=== PATIENT | male | born 1945 | race Caucasian/White ===

== ENCOUNTER → 2020-01-02 | Outpatient (CLI) | payer OTHER, MEDICARE ==
[~2020-01-02] MED LIST: ALBU90OI INH; ALDACTONE100 MG PO; ALPR.5 PO; AMLO10 PO; AMLO5 PO; ANDROGEL75 GM TD; ATOR40TA PO; BACL20 PO; CALCIUM 600+D1 EACH PO; CHLO25B PO; CYCL10 PO; DICL75ER PO; DONEPEZIL HCL10 MG PO; DOXA2 PO; DOXA4 PO; Doxycycline Mon50 M1 PO; ETOD500 PO; LECITHIN400 MG PO; LISHYD2025 PO; LISI20 PO; LORA.5 PO; Lecithin-191200 MG; MAGNESIUM250 MG PO; MAGOXI400 PO; METO25ER PO; MULVITMIND PO; MULVITMINE PO; OMEP20ER PO; POTASSIUM GLUC500 MG PO; PREPARATION H1 EACH TOP; SILD50TA PO; SIMV40 PO; TAMS.4ER PO; TESTOSTERONE INJ; Ultram50 MG PO; VITAMIN D31000 UNIT PO; Vitamin B Comple1 EA PO
[2020-01-02 16:27] LABS: Blood, Urine Neg (Neg); Glucose Qualitative, Urine Neg (Neg); Ketones, Urine Neg (Neg); Leukocyte Esterase, Urine Neg (Neg); Nitrite, Urine Pos (Neg); Protein, Urine Neg (Neg); Specific Gravity, Urine 1.015 (1.003-1.022); Urobilinogen, Urine 2+ (Normal)
[2020-01-02 16:36] LABS: Appearance, Urine Clear (Clear); Bacteria Mod /hpf; Bilirubin, Urine 2+ (Neg); Color, Urine Orange (P-Yellow); Red Blood Cells, Urine 0-2 /hpf (0-2); Squamous Epithelial Cells Few /hpf (Few); White Blood Cells, Urine 0-2 /hpf (0-5)
== END | disposition home or self-care (01) ==
LOC: LAB SHORT 13:00 → LAB 13:00
PROVIDERS: Urology
DX: N39.0 Urinary tract infection, site not specified (principal)
CPT/HCPCS: 81001; 87086

== ENCOUNTER 2020-01-03 13:00 | Emergency (ER) | payer OTHER, MEDICARE ==
[~2020-01-03] VITALS: Ht 180.3 cm; Wt 99.8 kg
[~2020-01-03 13:00] MED LIST changes: -ALDACTONE100 MG PO; -ANDROGEL75 GM TD; -BACL20 PO; -CHLO25B PO; +DONE10 PO; -DONEPEZIL HCL10 MG PO; -ETOD500 PO; -PREPARATION H1 EACH TOP; -TAMS.4ER PO; +Testostero100 MG/1 M INJ; -Ultram50 MG PO
[2020-01-03] MEDS ORDERED: BACL20 PO (13:22)
[2020-01-03] MEDS ORDERED: CHLO25B PO (13:23)
[2020-01-03] MEDS ORDERED: ETOD500 PO (13:24)
[2020-01-03] MEDS ORDERED: ALDACTONE100 MG PO (13:26)
[2020-01-03] MEDS ORDERED: TAMS.4ER (13:26)
[2020-01-03] MEDS ORDERED: Ultram50 MG PO (13:48)
[2020-01-03] MEDS ORDERED: PREPARATION H1 EACH TOP (13:48)
== END 2020-01-03 15:12 | disposition home or self-care (01) ==
LOC: ER 13:00
DX: K64.4 Residual hemorrhoidal skin tags (principal); I10 Essential (primary) hypertension; K21.9 Gastro-esophageal reflux disease without esophagitis; Z88.2 Allergy status to sulfonamides; Z91.048 Other nonmedicinal substance allergy status; Z88.8 Allergy status to other drugs, medicaments and biological substances; Z88.5 Allergy status to narcotic agent; Z79.899 Other long term (current) drug therapy; Z79.51 Long term (current) use of inhaled steroids
CPT/HCPCS: 99283

== ENCOUNTER 2020-01-23 06:20 | Day surgery (SDC) | payer OTHER, MEDICARE ==
[~2020-01-23] VITALS: Ht 177.8 cm; Wt 100.0 kg
[~2020-01-23 06:20] MED LIST changes: +ALDACTONE100 MG PO; +ANDROGEL75 GM TD; +BACL20 PO; +CHLO25B PO; -DONE10 PO; +DONEPEZIL HCL10 MG PO; +ETOD500 PO; +PREPARATION H1 EACH TOP; +TAMS.4ER PO; -Testostero100 MG/1 M INJ; +Ultram50 MG PO
--- NOTE | 2020-01-23 07:43 | NUR ---
PT INTO SDS VIA W/C ABLE TO TRANSFER TO BED WITH SLIDER BOARD. History, Chart, Medications and Allergies reviewed before start of procedure.Patient confirms NPO status and agrees with scheduled surgery. Lungs clear T/O to Auscultation.
--- NOTE | 2020-01-23 09:51 | NUR ---
REPORT GIVEN TO ROXANA
--- NOTE | 2020-01-23 11:15 | NUR ---
discharged Discharge instructions reviewed with patient. Patient verbalizes understanding. Copy given to patient to take home. Dressing to procedure site clean, dry, intact with no visible drainage, swelling, erythema or bruising noted. Patient States Post-Procedure ride home has been arranged. Discharged via wheelchair to private car for ride home. pt transfered with daisha lift to personal wc pt tolerated well rx given to to fill f[facility] secured c/d/i
--- NOTE | 2020-01-26 07:39 | NUR ---
01/26/20 0739 Nikki Hebert VERIFICATIONS: EDIT CHART.
== END 2020-01-23 22:48 | disposition home or self-care (01) ==
LOC: ORSCMMR 06:20 → ORD 08:00 → ORSCMMR 22:48
PROVIDERS: Surgery
PROC: 06BY0ZC Excision of Hemorrhoidal Plexus, Open Approach (ICD-10-PCS; principal; 2020-01-23 08:00)
DX: K64.2 Third degree hemorrhoids (principal); I10 Essential (primary) hypertension; E78.5 Hyperlipidemia, unspecified; J45.909 Unspecified asthma, uncomplicated; Z79.899 Other long term (current) drug therapy
CPT/HCPCS: 88304; J1100; J1956; J2405; J2704; J3010; J7120

== ENCOUNTER 2020-08-13 10:32 | Day surgery (SDC) | payer OTHER ==
--- NOTE | 2020-08-13 12:55 | NUR ---
08/13/20 1255 MELANIE BORJAS incomplete procedure - upon taking off attends solid, brown stool was noted. DR. KAUR ATTEMPTED TO PASS SCOPE BUT IT WAS EVIDENT THAT COLON WAS NOT CLEANED AND PROCEDURE WAS INCOMPLETE. PT ADVISED HE WILL NEED TO COMPLETE ADDITIONAL COLON PREP AND CONTACT DR. KAUR'S OFFICE TO RESCHEDULE PROCEDURE.
== END 2020-08-13 12:45 | disposition home or self-care (01) ==
LOC: ORSCSDS 10:32
PROVIDERS: Surgery
PROC: 0DJD8ZZ Inspection of Lower Intestinal Tract, Via Natural or Artificial Opening Endoscopic (ICD-10-PCS; principal; 2020-08-13 12:00)
DX: Z12.11 Encounter for screening for malignant neoplasm of colon (principal); K64.8 Other hemorrhoids; Z86.010 Personal history of colon polyps; I10 Essential (primary) hypertension; E78.5 Hyperlipidemia, unspecified; D69.6 Thrombocytopenia, unspecified; J45.909 Unspecified asthma, uncomplicated; Z79.899 Other long term (current) drug therapy; Z87.891 Personal history of nicotine dependence
CPT/HCPCS: J2704; J7120

== ENCOUNTER 2020-08-14 10:27 | Day surgery (SDC) | payer OTHER ==
[~2020-08-14] VITALS: Ht 180.3 cm; Wt 100.0 kg
== END 2020-08-14 13:25 | disposition home or self-care (01) ==
LOC: ORSCSDS 10:27
PROVIDERS: Surgery
PROC: 0DJD8ZZ Inspection of Lower Intestinal Tract, Via Natural or Artificial Opening Endoscopic (ICD-10-PCS; principal; 2020-08-14 12:00)
DX: Z12.11 Encounter for screening for malignant neoplasm of colon (principal); Z86.010 Personal history of colon polyps; K64.4 Residual hemorrhoidal skin tags; I10 Essential (primary) hypertension; E78.5 Hyperlipidemia, unspecified; J45.909 Unspecified asthma, uncomplicated; Z79.899 Other long term (current) drug therapy
CPT/HCPCS: J2704; J7120

== ENCOUNTER 2020-08-25 10:45 | Emergency (ER) | payer OTHER, MEDICARE ==
[~2020-08-25] VITALS: Ht 177.8 cm; Wt 99.8 kg
[2020-08-25] MEDS ORDERED: PERIDEX15 ML (10:57)
[2020-08-25] MEDS ORDERED: DONE10 PO (10:58)
[2020-08-25] MEDS ORDERED: ETOD500 PO (10:59)
[2020-08-25] MEDS ORDERED: Fluocinonide15 GM (10:59)
[2020-08-25] MEDS ORDERED: FLUT.05NI (11:00)
[2020-08-25] MEDS ORDERED: Pyridium100 MG PO (11:01)
== END 2020-08-25 13:07 | disposition home or self-care (01) ==
LOC: ER 10:45
DX: L29.9 Pruritus, unspecified (principal); I10 Essential (primary) hypertension; K21.9 Gastro-esophageal reflux disease without esophagitis; E78.00 Pure hypercholesterolemia, unspecified; Z88.2 Allergy status to sulfonamides; Z88.5 Allergy status to narcotic agent; Z88.8 Allergy status to other drugs, medicaments and biological substances; Z88.1 Allergy status to other antibiotic agents; Z79.899 Other long term (current) drug therapy
CPT/HCPCS: 99282

== ENCOUNTER 2021-01-11 09:28 | Emergency (ER) | payer OTHER, MEDICARE ==
[~2021-01-11] VITALS: Ht 177.8 cm; Wt 95.2 kg
[~2021-01-11 09:28] MED LIST changes: +DONE10 PO; +FLUT.05NI; +Fluocinonide15 GM; +PERIDEX15 ML PO; +Pyridium100 MG PO
[2021-01-11] MEDS ORDERED: MELO7.5 PO (09:58)
[2021-01-11] MEDS ORDERED: Hytrin2 MG PO (09:59)
[2021-01-11] MEDS ORDERED: ATOR40TA PO ×2 (10:00)
[2021-01-11] MEDS ORDERED: FAMO40 PO ×2 (10:03)
[2021-01-11] MEDS ORDERED: Roxicodone5 MG PO (11:53)
[2021-01-11] MEDS ORDERED: CEFD300 PO (11:53)
== END 2021-01-11 13:00 | disposition home or self-care (01) ==
LOC: ER 09:28
DX: J18.9 Pneumonia, unspecified organism (principal); M54.6 Pain in thoracic spine; I10 Essential (primary) hypertension; E78.00 Pure hypercholesterolemia, unspecified; K21.9 Gastro-esophageal reflux disease without esophagitis; Z88.2 Allergy status to sulfonamides; Z88.8 Allergy status to other drugs, medicaments and biological substances; Z79.899 Other long term (current) drug therapy
CPT/HCPCS: 71046; 99283-25; A9270

== ENCOUNTER 2021-01-12 08:00 | Inpatient (IN) | payer OTHER, MEDICARE ==
[~2021-01-12] VITALS: Ht 182.9 cm; Wt 109.2 kg
[~2021-01-12 08:00] MED LIST changes: +CEFD300 PO; +FAMO40 PO; +Hytrin2 MG PO; +MELO7.5 PO; +Roxicodone5 MG PO
[2021-01-12 09:01] LABS: BASOPHILS ABSOLUTE AUTO 0.05 K/mm3 (0.00-0.23); BASOPHILS PERCENT AUTO 0 % (0-2); EOSINOPHILS ABSOLUTE AUTO 0.29 K/mm3 (0.00-0.68); EOSINOPHILS PERCENT AUTO 2 % (0-6); Hematocrit 37.7 % (37.0-53.0); Hemoglobin 12.2 g/dL (13.5-17.5); IMMATURE GRAN ABSOLUTE AUTO 0.12 K/mm3 (0.00-0.10); IMMATURE GRAN PERCENT AUTO 1 % (0-1); LYMPHOCYTES ABSOLUTE AUTO 1.14 K/mm3 (0.84-5.20); LYMPHOCYTES PERCENT AUTO 9 % (21-46); MONOCYTES ABSOLUTE AUTO 1.17 K/mm3 (0.16-1.47); MONOCYTES PERCENT AUTO 9 % (4-13); Mean Corpuscular HGB Conc 32.4 g/dL (31.5-36.5); Mean Corpuscular Volume 80 fL (80-100); Mean Platelet Volume 11.2 fL (9.1-12.4); NEUTROPHILS ABSOLUTE AUTO 9.63 K/mm3 (1.96-9.15); NEUTROPHILS PERCENT AUTO 78 % (41-73); Platelet Count 258 K/mm3 (150-400); RDW Coefficient Variation 14.8 % (11.7-14.2); RDW Standard Deviation 43.2 fL (35.1-46.3); Red Blood Cell Count 4.69 M/mm3 (4.30-5.90)
[2021-01-12 09:23] LABS: Albumin, Blood 3.3 g/dL (3.4-5.0); Albumin/Globulin Ratio 0.7 (0.8-1.8); Bilirubin, Total 0.4 mg/dL (0.1-1.0); Bun/Creatinine Ratio 26.5 (12.0-20.0); Calcium, Blood 9.4 mg/dL (8.5-10.1); Creatinine, Blood 1.36 mg/dL (0.60-1.20); Globulin, Blood 4.6 g/dL (2.2-4.0); Potassium, Blood 4.2 mmol/L (3.5-5.5); Total Protein, Blood 7.9 g/dL (6.4-8.2)
[2021-01-12 10:50] LABS: Source, Urine Clean Catch
[2021-01-12 10:57] LABS: Bilirubin, Urine Neg (Neg); Blood, Urine 5+ (Neg); Glucose Qualitative, Urine Neg (Neg); Ketones, Urine 1+ (Neg); Leukocyte Esterase, Urine 3+ (Neg); Nitrite, Urine Neg (Neg); Protein, Urine 2+ (Neg); Specific Gravity, Urine 1.025 (1.003-1.022); Urobilinogen, Urine NORM (Normal)
[2021-01-12 11:03] LABS: Appearance, Urine Cloudy (Clear); Color, Urine Yellow (P-Yellow)
[2021-01-12 11:05] LABS: Bacteria Few /hpf; Red Blood Cells, Urine TNTC /hpf (0-2); Squamous Epithelial Cells Rare /hpf (Few)
--- NOTE | 2021-01-12 17:38 | NUR ---
PATIENT ARRIVED TO ROOM 350 AT 1620 BY STRETCHER AND THREE STAFF MEMBERS ASSISTED TO TRANSFER PATIENT OVER TO HOSPITAL BED. RECIEVED BEDSIDE REPORT FROM JOHN RATLIFF. ADMISSION ASSESSMENT AND H&P COMPLETED TO THE BEST OF MY ABILITY REFERING TO THE PATIENT'S MEDICAL RECORD. PATIENT WAS ABLE TO ANSWER ORIENTATION QUESTIONS APPROPRIATELY, BUT TOOK SOME TIME AND SOME PROMPTING. IV FLUIDS STARTED AND LOVENOX ADMINISTERED. TELE BOX JUST NOW RECIEVED AND IS BEING PLACED ON PATIENT. PATIENT HEARD HAVING AUDITORY AND VISUAL HALLUCINATIONS OCCASIONALLY. SO FAR HE HAS BEEN PLEASANT AND COOPERATIVE WITH STAFF. PATIENT RESTING IN BED AT THIS TIME. CALL LIGHT IN REACH.
--- NOTE | 2021-01-13 06:22 | NUR ---
SUMMARY NO ACUTE ISSUES NOTED. PT HOME DOSE OF OXYCODONE ORDERED BY DR NICOLAS. PT BACK PAIN HAS BEEN MANAGED WELL. PT ABD REMAINS DISTENDED. PT HAD NO NOTED BM. PT GIVEN SUPOSITORY W/ NO BM. PT CURRENTLY AWAKE AND IN NO DISTRESS. PT SPO2 >90% ON RA. CALL LIGHT IN REACH AND BED ALARM ON.
[2021-01-13 06:23] LABS: BASOPHILS ABSOLUTE AUTO 0.03 K/mm3 (0.00-0.23); BASOPHILS PERCENT AUTO 0 % (0-2); EOSINOPHILS ABSOLUTE AUTO 0.33 K/mm3 (0.00-0.68); EOSINOPHILS PERCENT AUTO 4 % (0-6); Hematocrit 35.1 % (37.0-53.0); Hemoglobin 11.3 g/dL (13.5-17.5); IMMATURE GRAN ABSOLUTE AUTO 0.07 K/mm3 (0.00-0.10); IMMATURE GRAN PERCENT AUTO 1 % (0-1); LYMPHOCYTES ABSOLUTE AUTO 1.27 K/mm3 (0.84-5.20); LYMPHOCYTES PERCENT AUTO 13 % (21-46); MONOCYTES ABSOLUTE AUTO 0.93 K/mm3 (0.16-1.47); MONOCYTES PERCENT AUTO 10 % (4-13); Mean Corpuscular HGB 26.3 pg (26.0-34.0); Mean Corpuscular HGB Conc 32.2 g/dL (31.5-36.5); Mean Corpuscular Volume 82 fL (80-100); Mean Platelet Volume 10.3 fL (9.1-12.4); NEUTROPHILS PERCENT AUTO 72 % (41-73); Platelet Count 235 K/mm3 (150-400); RDW Standard Deviation 45.2 fL (35.1-46.3); White Blood Cell Count 9.53 K/mm3 (4.00-11.30)
[2021-01-13 06:39] LABS: Bun/Creatinine Ratio 25.8 (12.0-20.0); Calcium, Blood 9.1 mg/dL (8.5-10.1); Creatinine, Blood 1.28 mg/dL (0.60-1.20); Potassium, Blood 4.4 mmol/L (3.5-5.5)
--- NOTE | 2021-01-13 07:13 | NUR ---
summary NO ACUTE ISSUES NOTED. PT MORE ALERT THIS AM. PT PAINFUL AND UNCOMFORTABLE FOR MOST OF FIRST PART OF SHIFT. PT COMPLAINED OF BACK/ NECK PAIN. TYLENOL DID NOT PROVIDE RELIEF. PROVIDER ROEBRT CALLED AND HOME DOSE OF OXYCODONE WAS ORDERED. PT TX W/ RELIEF NOTED AND PT ABLE TO SLEEP. PT ABD IS DISTENDED AND RIGID. PT PASSING GAS BUT NO BM. PT GIVEN SUPPOSITORY W/ NO BM. PT EXTREMELY STIFF AND UNABLE TO SIT UP WELL. PT SPO2 HAS BEEN >90% DURING SHIFT. CALL LIGHT IN REACH AND PT IN NO DISTRESS.
--- NOTE | 2021-01-13 17:46 | NUR ---
SHIFT SUMMARY BHARATI HAD BOWEL PROTOCOL AND HAD TO VERY EXTRA LARGE LOOSE INCONTINENT BOWEL MOVEMENTS. ABD MUCH LESS DISTENDED AFTER THESE. DENIES PAIN. BEDBOUND, ONLY HAS GROSS MOVEMENT IN BLE. WORKED WITH PT, NOW HAS A TRAPEZE ABOVE HIS BED. ORIENTED SOMEWHAT, FORGETFUL. DESATS TO 60S WITHOUT OXYGEN, DR OSORIO MADE AWARE, SHE ORDERED SLEEP STUDY FOR TONIGHT. PT ON 2L OXYGEN CONTINUALLY FOR HIS FREQNET SMALL NAPS, BUT HE TENDS TO TAKE THIS OFF. HEARING AID BATTERIES DROPPED OFF BY HIS , NEW ONE PLACED IN R [place], ZIP LOCK BAG OF [place] BATTERIES AT . TOOK PILLS WIATH APPLESAUCE. CALL LIGHT IN REACH, FREQUENT CHECKS, TM
--- NOTE | 2021-01-14 05:10 | NUR ---
JUVENILE OFFICER SUMMARY NO ACUTE CHANGES THIS SHIFT. PT AAOX1, ABLE TO FOLLOW SOME DIRECTION BUT IS VERY DIOMEDE AND OFTEN RESPONDS WITH NONSENSICAL WORDS. SMALL BM AT START OF SHIFT. LACTULOSE HELD DUE TO PT HAVING 2-3 EXTRA LARGE LIQUID BM'S PER DAY SHIFT RN REPORT. INCONTINENT OF URINE, ATTENDS CHANGED SEVERAL TIMES THROUGH THE NIGHT. VSS, WILL CONTINUE TO MONITOR.
[2021-01-14 06:07] LABS: Anion Gap 7 mmol/L (6-16); Blood Urea Nitrogen 26 mg/dL (8-24); Bun/Creatinine Ratio 22.8 (12.0-20.0); CO2, Blood 24 mmol/L (21-32); Calcium, Blood 9.3 mg/dL (8.5-10.1); Chloride, Blood 103 mmol/L (98-108); Creatinine, Blood 1.14 mg/dL (0.60-1.20); Glomerular Filtration Rate >60 (60-); Glucose, Blood 107 mg/dL (70-99); Potassium, Blood 4.2 mmol/L (3.5-5.5); Sodium, Blood 134 mmol/L (136-145)
[2021-01-14] MEDS ORDERED: ACET500 PO ×2 (12:01)
[2021-01-14] MEDS ORDERED: CLOB.05TO TOP ×2 (12:03)
[2021-01-14] MEDS ORDERED: Cyproheptadine H4 MG PO ×2 (12:05)
[2021-01-14] MEDS ORDERED: DICLOFENAC SOD100 G1 TOP ×2 (12:08)
[2021-01-14] MEDS ORDERED: DOXY100 PO ×2 (12:08)
[2021-01-14] MEDS ORDERED: Atarax10 MG PO ×2 (12:11)
[2021-01-14] MEDS ORDERED: LIDO700A20 TOP ×2 (12:12)
[2021-01-14] MEDS ORDERED: TERA5 PO ×2 (12:13)
[2021-01-14 13:52] LABS: SARS-Cov-2 (COVID-19) PCR, MMC NEGATIVE (NEGATIVE)
[2021-01-14] MEDS ORDERED: ACET325 PO ×2 (14:30)
[2021-01-14] MEDS ORDERED: AZIT250 PO ×2 (14:30)
[2021-01-14] MEDS ORDERED: BISA10S PR ×2 (14:31)
[2021-01-14] MEDS ORDERED: CEFU500T30 PO ×2 (14:32)
[2021-01-14] MEDS ORDERED: DOXA2 PO ×2 (14:33)
[2021-01-14] MEDS ORDERED: DONEPEZIL HCL10 MG PO ×2 (14:33)
[2021-01-14] MEDS ORDERED: OXYC5 PO ×2 (14:35)
[2021-01-14] MEDS ORDERED: MIRALAX17 GM PO ×2 (14:35)
--- NOTE | 2021-01-14 16:42 | NUR ---
DISCHARGED TO [facility]IA [facility] WITH [facility]. REPORT CALLED TO TWYLA. [facility]
== END 2021-01-14 15:40 | DRG 871 ==
LOC: ER 08:00 → MEDS 08:01 → ERHOLD 08:01 → MEDS 16:15
PROVIDERS: Family Medicine; Physician Assistant; ADMIT Hospitalist
DX: A41.9 Sepsis, unspecified organism (principal); J18.9 Pneumonia, unspecified organism; G92 Toxic encephalopathy; N17.9 Acute kidney failure, unspecified; E87.1 Hypo-osmolality and hyponatremia; R65.20 Severe sepsis without septic shock; Z20.822 Contact with and (suspected) exposure to COVID-19; E86.0 Dehydration; R82.71 Bacteriuria; K59.09 Other constipation; M54.14 Radiculopathy, thoracic region; E78.5 Hyperlipidemia, unspecified; K21.9 Gastro-esophageal reflux disease without esophagitis; I10 Essential (primary) hypertension; F03.90 Unspecified dementia, unspecified severity, without behavioral disturbance, psychotic disturbance, mood disturbance, and anxiety; Z88.2 Allergy status to sulfonamides; Z88.8 Allergy status to other drugs, medicaments and biological substances; Z88.5 Allergy status to narcotic agent; Z79.899 Other long term (current) drug therapy; Z98.890 Other specified postprocedural states; Z90.79 Acquired absence of other genital organ(s)
CPT/HCPCS: 36415; 74177; 80048; 80053; 81001; 83605; 85025; 87040; 87086; 94762; 96365-59; 96366; 96367; 96372; 96375; 97110; 97161; 97166; 97530; 99285-25; A9270; G0378; J0456; J0696; J0706; J1170; J1650; J2405; J2785; J7030; J7040; J7050; J7120; Q9967; U0004

== ENCOUNTER 2021-03-03 13:40 | Emergency (ER) | payer OTHER, MEDICARE ==
[~2021-03-03] VITALS: Ht 180.3 cm; Wt 99.8 kg
[~2021-03-03 13:40] MED LIST changes: +ACET325 PO; +ACET500 PO; +AZIT250 PO; +Atarax10 MG PO; +BISA10S PR; +CEFU500T30 PO; +CLOB.05TO TOP; +Cyproheptadine H4 MG PO; +DICLOFENAC SOD100 G1 TOP; +DOXY100 PO; +LIDO700A20 TOP; +MIRALAX17 GM PO; +OXYC5 PO; +TERA5 PO
[2021-03-03 15:08] LABS: BASOPHILS ABSOLUTE AUTO 0.04 K/mm3 (0.00-0.23); BASOPHILS PERCENT AUTO 1 % (0-2); EOSINOPHILS ABSOLUTE AUTO 0.19 K/mm3 (0.00-0.68); EOSINOPHILS PERCENT AUTO 3 % (0-6); Hemoglobin 10.7 g/dL (13.5-17.5); IMMATURE GRAN ABSOLUTE AUTO 0.04 K/mm3 (0.00-0.10); IMMATURE GRAN PERCENT AUTO 1 % (0-1); LYMPHOCYTES ABSOLUTE AUTO 1.49 K/mm3 (0.84-5.20); LYMPHOCYTES PERCENT AUTO 21 % (21-46); MONOCYTES ABSOLUTE AUTO 0.58 K/mm3 (0.16-1.47); MONOCYTES PERCENT AUTO 8 % (4-13); Mean Corpuscular HGB 25.1 pg (26.0-34.0); Mean Corpuscular HGB Conc 32.4 g/dL (31.5-36.5); Mean Corpuscular Volume 78 fL (80-100); Mean Platelet Volume 11.3 fL (9.1-12.4); NEUTROPHILS ABSOLUTE AUTO 4.78 K/mm3 (1.96-9.15); NEUTROPHILS PERCENT AUTO 67 % (41-73); Platelet Count 154 K/mm3 (150-400); RDW Coefficient Variation 16.5 % (11.7-14.2); RDW Standard Deviation 46.5 fL (35.1-46.3); Red Blood Cell Count 4.26 M/mm3 (4.30-5.90); White Blood Cell Count 7.12 K/mm3 (4.00-11.30)
[2021-03-03 15:29] LABS: Anion Gap 6 mmol/L (6-16); Blood Urea Nitrogen 25 mg/dL (8-24); CO2, Blood 27 mmol/L (21-32); Calcium, Blood 8.8 mg/dL (8.5-10.1); Chloride, Blood 104 mmol/L (98-108); Creatinine, Blood 0.96 mg/dL (0.60-1.20); Glomerular Filtration Rate >60 (60-); Glucose, Blood 150 mg/dL (70-99); Potassium, Blood 4.5 mmol/L (3.5-5.5); Sodium, Blood 137 mmol/L (136-145)
[2021-03-03] MEDS ORDERED: TRAM50 PO (16:43)
== END 2021-03-03 18:55 | disposition home or self-care (01) ==
LOC: ER 13:40
PROVIDERS: Emergency Medicine
DX: S30.0XXA Contusion of lower back and pelvis, initial encounter (principal); E78.00 Pure hypercholesterolemia, unspecified; I10 Essential (primary) hypertension; K21.9 Gastro-esophageal reflux disease without esophagitis; Z88.2 Allergy status to sulfonamides; Z79.899 Other long term (current) drug therapy; Z87.891 Personal history of nicotine dependence; X50.1XXA Overexertion from prolonged static or awkward postures, initial encounter
CPT/HCPCS: 72192; 80048; 85025; 93005; 93010; 99284-25

== ENCOUNTER → 2021-03-25 | Outpatient (CLI) | payer OTHER, MEDICARE ==
[~2021-03-25] MED LIST changes: +TRAM50 PO
[2021-03-25 07:40] LABS: Anion Gap 3 mmol/L (6-16); Blood Urea Nitrogen 24 mg/dL (8-24); Bun/Creatinine Ratio 27.1 (12.0-20.0); CO2, Blood 27 mmol/L (21-32); Calcium, Blood 9.1 mg/dL (8.5-10.1); Chloride, Blood 107 mmol/L (98-108); Creatinine, Blood 0.88 mg/dL (0.60-1.20); Glomerular Filtration Rate >60 (60-); Glucose, Blood 96 mg/dL (70-99); Potassium, Blood 4.7 mmol/L (3.5-5.5); Sodium, Blood 137 mmol/L (136-145)
== END | disposition home or self-care (01) ==
LOC: LAB SHORT 07:20
PROVIDERS: Internal Medicine
DX: M10.9 Gout, unspecified (principal)
CPT/HCPCS: 80048

== ENCOUNTER → 2021-11-05 | Outpatient (CLI) | payer OTHER, MEDICARE ==
[2021-11-05 14:52] LABS: Bilirubin, Urine Neg (Neg); Blood, Urine Neg (Neg); Glucose Qualitative, Urine Neg (Neg); Ketones, Urine Neg (Neg); Leukocyte Esterase, Urine Neg (Neg); Nitrite, Urine Neg (Neg); Protein, Urine Neg (Neg); Specific Gravity, Urine 1.005 (1.003-1.022); Urobilinogen, Urine NORM (Normal)
[2021-11-05 15:21] LABS: Appearance, Urine Clear (Clear); Color, Urine Pale Yellow (P-Yellow)
== END | disposition home or self-care (01) ==
LOC: LAB SHORT 09:00 → LAB FUT 11-04 16:55 → EDSTATUS 11-04 16:55
PROVIDERS: Nurse Practitioner
DX: N39.0 Urinary tract infection, site not specified (principal)
CPT/HCPCS: 81003

== ENCOUNTER → 2022-01-09 | Outpatient (CLI) | payer OTHER, MEDICARE ==
[2022-01-09 13:06] LABS: Source, Urine Voided
[2022-01-09 13:38] LABS: Bilirubin, Urine Neg (Neg); Blood, Urine Neg (Neg); Color, Urine Yellow (P-Yellow); Glucose Qualitative, Urine 4+ (Neg); Ketones, Urine Neg (Neg); Leukocyte Esterase, Urine Neg (Neg); Nitrite, Urine Neg (Neg); Protein, Urine Neg (Neg); Specific Gravity, Urine 1.015 (1.003-1.022); Urobilinogen, Urine NORM (Normal)
[2022-01-09 15:42] LABS: Appearance, Urine Hazy (Clear); Red Blood Cells, Urine 0-2 /hpf (0-2); Squamous Epithelial Cells Few /hpf (Few); White Blood Cells, Urine 0-2 /hpf (0-5)
[2022-01-09 15:43] LABS: Bacteria Mod /hpf; Mucus Light (0-Heavy); Yeast/Fungi Urine Mod /hpf
== END | disposition home or self-care (01) ==
LOC: LAB SHORT 12:53 → LAB FUT 11-17 14:05
PROVIDERS: Physician Assistant
DX: N39.0 Urinary tract infection, site not specified (principal)
CPT/HCPCS: 81001; 87077; 87086; 87186

== ENCOUNTER 2023-05-29 16:33 | Emergency (ER) | payer OTHER ==
[~2023-05-29] VITALS: Ht 172.7 cm; Wt 104.3 kg
[2023-05-29] MEDS ORDERED: ALFU10 PO (17:21)
[2023-05-29] MEDS ORDERED: BACL10 PO (17:21)
[2023-05-29] MEDS ORDERED: ETOD200 (17:23)
[2023-05-29] MEDS ORDERED: NORT10 (17:25)
[2023-05-29] MEDS ORDERED: OXYB5 PO (17:26)
[2023-05-29] MEDS ORDERED: PREG25 PO (17:26)
[2023-05-29] MEDS ORDERED: NORT25 PO (17:26)
[2023-05-29 17:34] LABS: Albumin, Blood 3.7 g/dL (3.4-5.0); Albumin/Globulin Ratio 1.1 (0.8-1.8); Bilirubin, Total 0.3 mg/dL (0.1-1.0); Bun/Creatinine Ratio 30.7 (12.0-20.0); Calcium, Blood 9.5 mg/dL (8.5-10.1); Creatinine, Blood 1.01 mg/dL (0.60-1.20); Globulin, Blood 3.5 g/dL (2.2-4.0); Potassium, Blood 4.4 mmol/L (3.5-5.5); Total Protein, Blood 7.2 g/dL (6.4-8.2)
[2023-05-29 17:50] LABS: BASOPHILS ABSOLUTE AUTO 0.07 K/mm3 (0.00-0.23); BASOPHILS PERCENT AUTO 1 % (0-2); EOSINOPHILS ABSOLUTE AUTO 0.32 K/mm3 (0.00-0.68); EOSINOPHILS PERCENT AUTO 4 % (0-6); Hematocrit 41.7 % (37.0-53.0); IMMATURE GRAN ABSOLUTE AUTO 0.04 K/mm3 (0.00-0.10); IMMATURE GRAN PERCENT AUTO 0 % (0-1); LYMPHOCYTES ABSOLUTE AUTO 1.76 K/mm3 (0.84-5.20); LYMPHOCYTES PERCENT AUTO 19 % (21-46); MONOCYTES ABSOLUTE AUTO 0.89 K/mm3 (0.16-1.47); MONOCYTES PERCENT AUTO 10 % (4-13); Mean Corpuscular HGB 27.4 pg (26.0-34.0); Mean Corpuscular HGB Conc 33.6 g/dL (31.5-36.5); Mean Corpuscular Volume 82 fL (80-100); Mean Platelet Volume 11.6 fL (9.1-12.4); NEUTROPHILS ABSOLUTE AUTO 6.09 K/mm3 (1.96-9.15); NEUTROPHILS PERCENT AUTO 66 % (41-73); Platelet Count 146 K/mm3 (150-400); RDW Standard Deviation 40.7 fL (35.1-46.3); Red Blood Cell Count 5.11 M/mm3 (4.30-5.90); White Blood Cell Count 9.17 K/mm3 (4.00-11.30)
[2023-05-29] MEDS ORDERED: METF500 PO (18:11)
[2023-05-29 18:21] VITALS: BP 120/80
== END 2023-05-29 19:21 | disposition home or self-care (01) ==
LOC: ER 16:33
PROVIDERS: Emergency Medicine
DX: R73.9 Hyperglycemia, unspecified (principal); I10 Essential (primary) hypertension; K21.9 Gastro-esophageal reflux disease without esophagitis; E78.00 Pure hypercholesterolemia, unspecified; Z88.2 Allergy status to sulfonamides; Z91.013 Allergy to seafood; Z88.6 Allergy status to analgesic agent; Z88.8 Allergy status to other drugs, medicaments and biological substances; Z88.5 Allergy status to narcotic agent; Z79.899 Other long term (current) drug therapy; Z87.891 Personal history of nicotine dependence
CPT/HCPCS: 71046; 80053; 82947; 85025; 93005; 93010; 99284-25; A9270

== ENCOUNTER 2024-07-09 18:00 | Emergency (ER) | payer OTHER ==
[~2024-07-09] VITALS: Ht 182.9 cm; Wt 99.8 kg
[~2024-07-09 18:00] MED LIST changes: +ALFU10 PO; +BACL10 PO; +ETOD200; +METF500 PO; +NORT10; +NORT25 PO; +ONDA4ODT MM; +OXYB5 PO; +PRED20 PO; +PREG25 PO
[2024-07-09 18:23] LABS: Source, Urine Clean Catch
[2024-07-09 18:26] LABS: Appearance, Urine Clear (Clear); Blood, Urine Neg (Neg); Color, Urine Yellow (P-Yellow); Glucose Qualitative, Urine Neg (Neg); Ketones, Urine 2+ (Neg); Leukocyte Esterase, Urine Neg (Neg); Nitrite, Urine Neg (Neg); Protein, Urine 1+ (Neg); Specific Gravity, Urine 1.015 (1.003-1.022); Urobilinogen, Urine NORM (Normal)
[2024-07-09 18:38] LABS: Bilirubin, Urine 1+ (Neg)
[2024-07-09 21:00] VITALS: BP 150/70
[2024-07-09] MEDS ORDERED: MIRALAX17 GM PO (21:49)
[2024-07-09] MEDS ORDERED: DOCU100 PO (21:49)
== END 2024-07-09 22:16 | disposition home or self-care (01) ==
LOC: ER 18:00
PROVIDERS: Emergency Medicine
DX: K59.00 Constipation, unspecified (principal); I10 Essential (primary) hypertension; E78.00 Pure hypercholesterolemia, unspecified; K21.9 Gastro-esophageal reflux disease without esophagitis; G82.20 Paraplegia, unspecified; Z88.2 Allergy status to sulfonamides; Z91.013 Allergy to seafood; Z88.5 Allergy status to narcotic agent; Z79.52 Long term (current) use of systemic steroids; Z79.84 Long term (current) use of oral hypoglycemic drugs; Z79.899 Other long term (current) drug therapy
CPT/HCPCS: 51798; 74176; 99284-25

== ENCOUNTER → 2025-07-04 | Outpatient (CLI) | payer MEDICARE ==
[~2025-07-04] MED LIST changes: +DOCU100 PO
[2025-07-04 17:49] LABS: Hematocrit 37.1 % (37.0-53.0); Hemoglobin 12.0 g/dL (13.5-17.5); Mean Corpuscular HGB Conc 32.3 g/dL (31.5-36.5); Mean Corpuscular Volume 81 fL (80-100); NRBC ABSOLUTE 0.00 K/mm3 (0.00-0.02); NRBC Auto 0.0 /100 WBC (0.0-0.2); Platelet Count 158 K/mm3 (150-400); RDW Coefficient Variation 16.0 % (11.7-14.2); RDW Standard Deviation 47.7 fL (35.1-46.3)
[2025-07-04 19:27] LABS: Anion Gap 8 mmol/L (3-11); Blood Urea Nitrogen 36 mg/dL (8-24); CHOL/HDL RATIO 3.6; CO2, Blood 27 mmol/L (21-32); Calcium, Blood 9.5 mg/dL (8.5-10.1); Chloride, Blood 104 mmol/L (98-108); Cholesterol 119 mg/dL (50-200); Creatinine, Blood 0.87 mg/dL (0.60-1.20); Glucose, Blood 156 mg/dL (70-99); HDL Cholesterol 33 mg/dL (>39); LDL/HDL RATIO 0.6; Low Density Lipoprotein Chol 21 mg/dL (0-110); Potassium, Blood 4.6 mmol/L (3.5-5.5); Sodium, Blood 134 mmol/L (136-145); Thyroid Stimulating Hormone 4.850 uIU/mL (0.360-4.800); Triglycerides 325 mg/dL (30-160); Very Low Density Lipoprot Chol 65 mg/dL (6-32)
== END | disposition home or self-care (01) ==
LOC: LAB 16:41 → LAB SHORT 16:41
PROVIDERS: Family Medicine
DX: E11.9 Type 2 diabetes mellitus without complications (principal); I10 Essential (primary) hypertension
CPT/HCPCS: 80048; 80061; 83036; 84443; 85027